=== PATIENT | male | born 2000 | race African-American/Black ===

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

== ENCOUNTER 2022-02-16 10:57 | Inpatient (IN) ==
[2022-02-16 11:37] LABS: Bilirubin,Urine Negative (Negative); Blood, Urine Negative (Negative); Glucose,Urine (UA) 500 mg/dL (Negative); Ketones,Urine 80 mg/dL (Negative); Nitrite,Urine Negative (Negative); Protein,Urine Negative (Negative); Urine Appearance Clear (Clear); Urine Color Yellow (Yellow); Urine Specific Gravity <= 1.005 (1.001-1.035); Urine Urobilinogen 0.2 eU/dL (<2.0); Urine pH 5.5 (4.5-8.0)
[2022-02-16 11:40] LABS: Bacteria,Urine Occasional /HPF (Few); RBC,Urine 1 /HPF (0-4); Squamous Epithelial Cell,Urine Occasional /HPF (0-10)
[2022-02-16 11:59] LABS: Barbiturates Screen,Urine Negative (Negative); Benzodiazepines Screen,Urine Negative (Negative); Cannabinoid Screen,Urine Negative (Negative); Opiate Screen,Urine Negative (Negative); Phencyclidine Screen,Urine Negative (Negative)
[2022-02-16 12:24] LABS: Basophils % 0.5 % (0.0-0.8); Eosinophils % 0.5 % (0.00-10.9); Hematocrit 42.4 VOL% (42.0-52.0); Hemoglobin 15.6 GM/DL (14.0-18.0); Immature Granulocytes % 0.5 %; Immature Granulocytes Absolute 0.03 #; Lymphocytes # 1.3 10*3/uL (1.4-4.0); Mean Corpuscular HGB Conc 36.8 GM/DL (32-36); Mean Corpuscular Volume 85.1 FL (87-102); Mean Platelet Volume 11.8 FL (9.6-12.0); Monocytes # 0.4 10*3/uL (0.11-0.8); Monocytes % 6.2 % (1.7-12.7); Neutrophils % 69.3 % (38.7-73.9); Platelet Count 211 T/CUMM (130-400); Red Blood Count 4.98 MC/CUMM (3.8-5.5); Red Cell Distribution Width 12.1 % (9.3-17.3); White Blood Count 5.7 T/CUMM (4-12)
[2022-02-16 13:06] LABS: Albumin 3.2 G/DL (3.4-5.0); Bilirubin,Total 0.8 MG/DL (0.20-1.00); Osmolality,Calculated 294.9 MOS/KG (273-304)
[2022-02-16] MEDS ORDERED: SODIUM CHLORIDE 0.9% 1,000 ML IV STA ×2 (13:38→14:43)
[2022-02-16] MEDS ORDERED: INSULIN REGULAR 100 UNIT/ML IV STA (13:40)
[2022-02-16 13:41] LABS: Total Protein 7.1 G/DL (6.4-8.2)
[2022-02-16 13:53] LABS: Calcium 9.3 MG/DL (8.5-10.1)
[2022-02-16 14:37] LABS: Arterial Base Excess iSTAT -10 MMOL/L (-2.5-2.5); Arterial Bicarbonate iSTAT 15.2 MMOL/L (20-26); Arterial O2 Saturation iSTAT 98 % (95-100); Arterial PCO2 iSTAT 31 MM HG (35-48); Arterial PO2 iSTAT 109 MM HG (80-95); Arterial Total CO2 iSTAT 16 MMO/L (23-27); Arterial pH iSTAT 7.295 (7.35-7.45)
[2022-02-16 14:37] LABS: Arterial Base Excess iSTAT -7 MMOL/L (-2.5-2.5); Arterial Bicarbonate iSTAT 20.6 MMOL/L (20-26); Arterial O2 Saturation iSTAT 18 % (95-100); Arterial PCO2 iSTAT 47 MM HG (35-48); Arterial PO2 iSTAT 17 MM HG (80-95); Arterial Total CO2 iSTAT 22 MMO/L (23-27); Arterial pH iSTAT 7.249 (7.35-7.45)
[2022-02-16] MEDS ORDERED: SODIUM PHOSPHATE IV PRN (14:53)
[2022-02-16] MEDS ORDERED: MAGNESIUM SULF RIDER 2 GM/50 ML PREMIX IV PRN (14:53)
[2022-02-16] MEDS ORDERED: ALBUTEROL 2.5 MG/3 ML NEB RESP TX PRN (14:53)
[2022-02-16] MEDS ORDERED: ONDANSETRON 4 MG/2 ML VIAL IV PRN (14:53)
[2022-02-16] MEDS ORDERED: ACETAMINOPHEN 325 MG TABLET PO PRN (14:53)
[2022-02-16] MEDS ORDERED: SODIUM CHLORIDE 0.9% 1,000 ML IV ONE ×2 (14:53→14:54)
[2022-02-16] MEDS ORDERED: SODIUM BICARB INJ 100 MEQ in STERILE WATER INJ 400 ML IV PRN (14:53)
[2022-02-16] MEDS ORDERED: MAGNESIUM SULF RIDER 4 GM/100 ML PREMIX IV PRN (14:53)
[2022-02-16] MEDS ORDERED: SODIUM CHLORIDE 0.9% IV PRN (14:53)
[2022-02-16] MEDS ORDERED: POTASSIUM CHLORIDE RIDER 10 MEQ/100 ML PREMIX IV PRN (14:54)
[2022-02-16] MEDS ORDERED: INSULIN REGULAR DRIP 100 ML IV SCH ×2 (15:00)
[2022-02-16] MEDS ORDERED: DEXTROSE 10% 250 ML BAG IV PRN ×2 (15:01)
[2022-02-16 15:57] LABS: Calcium 8.6 MG/DL (8.5-10.1)
[2022-02-16 15:58] LABS: Osmolality,Calculated 288.6 MOS/KG (273-304); Potassium 5.2 MMOL/L (3.5-5.1)
[2022-02-16] MEDS ORDERED: SODIUM CHLORIDE 0.9% 1,000 ML IV SCH ×3 (16:00→20:00)
[2022-02-16] MEDS: PANTOPRAZOLE 40 MG TABLET PO SCH (16:15)
[2022-02-16] MEDS: ENOXAPARIN 40 MG/0.4 ML SYRINGE SUBCUT SCH (16:15)
[2022-02-16] MEDS: SODIUM CHLORIDE 0.9% 1,000 ML IV SCH ×2 (16:21→18:05)
[2022-02-16 18:59] LABS: Calcium 7.4 MG/DL (8.5-10.1); Potassium 3.4 MMOL/L (3.5-5.1)
[2022-02-16] MEDS: POTASSIUM CHLORIDE RIDER 10 MEQ/100 ML PREMIX IV PRN ×2 (20:59→21:58)
[2022-02-16] MEDS: DEXTROSE 5% NACL 0.9% 1,000 ML IV SCH (22:21)
[2022-02-16 23:19] LABS: Calcium 7.5 MG/DL (8.5-10.1); Osmolality,Calculated 283.5 MOS/KG (273-304); Potassium 3.8 MMOL/L (3.5-5.1)
[2022-02-17] MEDS: DEXTROSE 5% NACL 0.9% 1,000 ML IV SCH ×2 (02:02→05:54)
[2022-02-17 03:05] LABS: Basophils % 0.6 % (0.0-0.8); Eosinophils # 0.1 10*3/uL (0.0-0.87); Eosinophils % 1.9 % (0.00-10.9); Hematocrit 35.1 VOL% (42.0-52.0); Hemoglobin 12.2 GM/DL (14.0-18.0); Immature Granulocytes % 0.3 %; Immature Granulocytes Absolute 0.01 #; Lymphocytes # 1.9 10*3/uL (1.4-4.0); Lymphocytes % 51.4 % (21.2-54.2); Mean Corpuscular HGB Conc 34.8 GM/DL (32-36); Mean Corpuscular Volume 85.2 FL (87-102); Mean Platelet Volume 10.9 FL (9.6-12.0); Monocytes # 0.2 10*3/uL (0.11-0.8); Monocytes % 6.6 % (1.7-12.7); Neutrophils % 39.2 % (38.7-73.9); Platelet Count 174 T/CUMM (130-400); Red Blood Count 4.12 MC/CUMM (3.8-5.5); Red Cell Distribution Width 12.2 % (9.3-17.3); White Blood Count 3.6 T/CUMM (4-12)
[2022-02-17 03:30] LABS: Phosphorous 2.2 MG/DL (2.5-4.9)
[2022-02-17 03:55] LABS: Calcium 7.8 MG/DL (8.5-10.1); Potassium 3.1 MMOL/L (3.5-5.1)
[2022-02-17] MEDS: POTASSIUM CHLORIDE RIDER 10 MEQ/100 ML PREMIX IV PRN ×2 (04:19→05:10)
[2022-02-17] MEDS ORDERED: POTASSIUM CHLORIDE 20 MEQ TABLET PO ONE (07:24)
[2022-02-17] MEDS ORDERED: GLUCAGON 1 MG VIAL IM PRN (07:24)
[2022-02-17 07:27] LABS: Potassium 3.7 MMOL/L (3.5-5.1)
[2022-02-17] MEDS ORDERED: DEXTROSE 10% 250 ML BAG IV PRN (07:43)
[2022-02-17] MEDS ORDERED: SODIUM CHLORIDE 0.45% 1,000 ML IV SCH (08:00)
[2022-02-17] MEDS: INSULIN LISPRO 100 UNIT/ML SUBCUT SCH ×4 (08:18→21:18)
[2022-02-17] MEDS ORDERED: INSULIN GLARGINE 100 UNIT/ML SUBCUT SCH (09:00)
[2022-02-17] MEDS: amLODIPine 5 MG TABLET PO SCH (09:14)
[2022-02-17] MEDS: PANTOPRAZOLE 40 MG TABLET PO SCH (09:14)
[2022-02-17] MEDS: SODIUM CHLORIDE 0.45% 1,000 ML IV SCH ×2 (09:15→15:26)
[2022-02-17 09:49] LABS: Risk Ratio 4.57; VLDL Cholesterol 72.4 MG/DL
[2022-02-17 11:37] LABS: Calcium 8.1 MG/DL (8.5-10.1); Osmolality,Calculated 286.5 MOS/KG (273-304); Potassium 4.4 MMOL/L (3.5-5.1)
[2022-02-17] MEDS ORDERED: INSULIN GLARGINE 100 UNIT/ML SUBCUT ONE ×2 (13:49→16:04)
[2022-02-17] MEDS: ENOXAPARIN 40 MG/0.4 ML SYRINGE SUBCUT SCH (14:04)
[2022-02-17] MEDS: OMEGA 3 ACID ETHYL ESTERS 1 GM CAPSULE PO SCH (21:18)
[2022-02-18] MEDS: SODIUM CHLORIDE 0.45% 1,000 ML IV SCH ×2 (00:33→09:24)
[2022-02-18 05:40] LABS: Basophils % 0.8 % (0.0-0.8); Eosinophils # 0.1 10*3/uL (0.0-0.87); Hematocrit 34.5 VOL% (42.0-52.0); Immature Granulocytes % 0.3 %; Immature Granulocytes Absolute 0.01 #; Lymphocytes % 51.3 % (21.2-54.2); Mean Corpuscular HGB Conc 34.8 GM/DL (32-36); Mean Corpuscular Volume 84.8 FL (87-102); Mean Platelet Volume 11.3 FL (9.6-12.0); Monocytes # 0.3 10*3/uL (0.11-0.8); Monocytes % 6.3 % (1.7-12.7); Neutrophils % 39.3 % (38.7-73.9); Platelet Count 165 T/CUMM (130-400); Red Blood Count 4.07 MC/CUMM (3.8-5.5); Red Cell Distribution Width 12.5 % (9.3-17.3)
[2022-02-18 05:55] LABS: Calcium 8.8 MG/DL (8.5-10.1); Osmolality,Calculated 279.1 MOS/KG (273-304); Potassium 2.9 MMOL/L (3.5-5.1)
[2022-02-18] MEDS ORDERED: INSULIN GLARGINE 100 UNIT/ML SUBCUT SCH ×2 (09:00)
[2022-02-18] MEDS ORDERED: POTASSIUM CHLORIDE 20 MEQ TABLET PO ONE ×2 (09:00→13:00)
[2022-02-18] MEDS: INSULIN LISPRO 100 UNIT/ML SUBCUT SCH ×2 (09:21→12:06)
[2022-02-18] MEDS: OMEGA 3 ACID ETHYL ESTERS 1 GM CAPSULE PO SCH (09:24)
[2022-02-18] MEDS: PANTOPRAZOLE 40 MG TABLET PO SCH (09:25)
[2022-02-18] MEDS: amLODIPine 5 MG TABLET PO SCH (09:25)
[2022-02-18 12:17] VITALS: BP 147/92
== END 2022-02-18 12:59 | disposition home or self-care (01) | DRG 420 ==
LOC: N.ED 10:57 → N.EDINP 14:54 → SUATTDRO 14:54 → N.CC 15:22 → N.5E 02-17 16:05
PROVIDERS: ADMIT Family Medicine; ATTEND Family Medicine